=== PATIENT | female | born 1965 | race American Indian/Alaskan Native ===

== ENCOUNTER 2017-01-04 07:45 | Day surgery (SDC) | payer OTHER, MEDICAID ==
[2017-01-01 19:34] VITALS: BMI 29.1
[2017-01-04] MEDS ORDERED: Iohexol 350mgl/ml 50 ML ONE (08:27)
[2017-01-04] MEDS ORDERED: Iohexol 350mg/ml 100 ML ONE (08:58)
--- NOTE | 2017-01-04 09:37 | CP.PCM.PN ---
Subjective - Date & Time of Evaluation Date of Evaluation: 01/04/17 Time of Evaluation: 09:25 - Subjective Subjective: PROCEDURE NOTE Proc: [facility] Coronary arteriogram LVgram Indic:chest pain w/ abnormal stress tester electronic scale: Vannesa Yen MD - covering for Dr Debby Bah DOS: 01/04/2017 PRELIMINARY FINDINGS LM nL LAD nL LCx nL RCA posterior take-off; non-selective shot done; right dominant circulation; nL LEFT VENTRICULOGRAM EF > 70% no gradient across the aortic valve no wall motion abnormality IMPRESSION: Angiographically normal coronaries Normal LV systolic function REC: Non -cardiac work-up for etiology of chest pain as outpatient Case discussed with Dr Debby Bah
[2017-01-04] MEDS ORDERED: Sodium Chloride 0.9% 500 ML IV SCH ×2 (09:39→09:46)
--- NOTE | 2017-01-04 11:11 | CARDCATH ---
PROCEDURE DATE: 01/04/2017 DEPOSIT CLERK: Dr. Yen, covering for Dr. Bah. INDICATIONS: Chest pain with positive stress test. PROCEDURES: Left heart catheterization, left ventriculogram, aortogram. DESCRIPTION OF PROCEDURE: After an informed consent, the patient was brought to the cardiac labor economics professor and draped in the usual sterile fashion. Subsequently, the patient received subcutaneous lidocaine to the right femoral area for local anesthesia. The right femoral artery was accessed above the ingu inal ligament using a Cook needle. Using Seldinger technique, a 6-inch Thai sheath was placed. Us ing preshaped catheters, angiograms were taken of the coronary arteries and left ventriculogram was d one. RESULTS: CORONARY ARTERIOGRAM: 1. Left main artery was free of any disease and bifurcated to LAD and left circumflex artery. 2. The left anterior descending artery coursed in normal fashion and no significant disease was note d. 3. Left circumflex artery has no significant stenosis. 4. The right coronary artery takes off posteriorly and is a dominant vessel and has no significant d isease. LEFT VENTRICULOGRAM: The LV gram showed normal LV wall motion. The ejection fraction is greater shirley n 70%. There was no gradient across the aortic valve. IMPRESSIONS: Angiographically normal coronaries. The left ventricular systolic function is normal. RECOMMENDATIONS: Noncardiac workup for the etiology of chest pain will be pursued as outpatient. Vannesa Yen MD cc: [id number] TT: 01/04/2017 11:10:35 en
[2017-01-11 09:08] VITALS: RESP 18; O2SAT 100
== END 2017-01-04 11:20 | disposition short-term general hospital (02) ==
LOC: C.CATHLAB 07:45
PROVIDERS: ATTEND Internal Medicine Cardiovascular Disease
DX: R07.9 Chest pain, unspecified (principal); R94.39 Abnormal result of other cardiovascular function study
CPT/HCPCS: 84703; 93458; C1729; C1760; C1769; C1887; J1644; J7040; Q9967